=== PATIENT | female | born 1965 | race Caucasian/White ===

== ENCOUNTER 2016-10-18 16:54 | Emergency (ER) | payer OTHER ==
[~2016-10-18] VITALS: Ht 170.2 cm; Wt 104.3 kg
[~2016-10-18 16:54] MED LIST: AUGMENTIN 875875 MG PO; BENTYL 20 MG TA20 M1 PO; CIPRO500 MG PO; CITRATE OF MAG296 ML PO; COLACE100 MG PO; DESYREL150 MG PO; FLEXERIL PO; FLONASE 0.05%50 MCG NASAL; HYDROCODONE-AP1 EAC6 PO; IBUPROFEN 600600 M1 PO; IBUPROFEN 800800 M1 PO; KEFLEX500 M1 PO; KEFLEX500 MG PO; MACROBID 100 M100 M1 PO; MACRODANTIN100 MG PO; MIRALAX17 GM PO; NORCO 5-325 TA1 EACH PO; NYAMYC15 GM TOP; OLEPTRO ER150 MG PO; PHENERGAN 25 MG25 M1 PO; PREDNISONE 20 M20 M1 PO; PROZAC40 MG PO; PYRIDIUM200 MG PO; TRAZODONE 150150 M1 PO; VENLAFAXINE H37.5 M2 PO; XANAX 0.5 MG0.5 MG PO; ZANTAC 150MG T150 MG PO; ZOFRAN ODT4 MG PO; ZPAK PO
[2016-10-18 17:43] LABS: URINE BILIRUBIN NEGATIVE (Negative); URINE BLOOD TRACE (Negative); URINE COLOR YELLOW; URINE GLUCOSE-RANDOM* NEGATIVE (Negative); URINE KETONES NEGATIVE (Negative); URINE NITRITE NEGATIVE (Negative); URINE PROTEIN (DIPSTICK) NEGATIVE (Negative); URINE SPECIFIC GRAVITY 1.025 (1.003-1.035); URINE UROBILINOGEN 0.2 E.U./dl (0.2-1.0)
[2016-10-18 18:40] LABS: SQUAMOUS >10 Many /LPF (0-3); URINE RBC 0-2 Rare /HPF (0-2); URINE WBC 0-5 Rare /HPF (0-5)
[2016-10-18 18:41] LABS: BACTERIA 1-9 Few /HPF (None Seen); CASTS None Seen /LPF (None Seen); CRYSTALS None Seen /LPF (None Seen)
[2016-10-18] MEDS ORDERED: PHENAZOPYRIDIN200 M2 PO (18:51)
[2016-10-18] MEDS ORDERED: CIPRO500 MG PO (18:51)
== END 2016-10-18 19:02 | disposition home or self-care (01) ==
LOC: ER 16:54
PROVIDERS: Nurse Practitioner Family
DX: R30.0 Dysuria (principal); F31.9 Bipolar disorder, unspecified; K58.9 Irritable bowel syndrome, unspecified; E66.9 Obesity, unspecified; Z68.36 Body mass index [BMI] 36.0-36.9, adult; Z86.2 Personal history of diseases of the blood and blood-forming organs and certain disorders involving the immune mechanism; N80.9 Endometriosis, unspecified; Z88.1 Allergy status to other antibiotic agents; Z88.2 Allergy status to sulfonamides; Z88.6 Allergy status to analgesic agent

== ENCOUNTER → 2016-10-20 | Outpatient (CLI) | payer OTHER ==
[~2016-10-20] MED LIST changes: +PHENAZOPYRIDIN200 M2 PO
== END ==
LOC: RAD
DX: Z12.31 Encounter for screening mammogram for malignant neoplasm of breast (principal)

== ENCOUNTER 2016-11-15 20:07 | Emergency (ER) | payer OTHER ==
[~2016-11-15] VITALS: Ht 170.2 cm; Wt 108.9 kg
[2016-11-15] MEDS ORDERED: ATIVAN1 MG PO (21:56)
[2016-11-15] MEDS ORDERED: MOBIC15 MG PO (22:03)
== END 2016-11-15 22:18 | disposition home or self-care (01) ==
LOC: ER 20:07
DX: G56.22 Lesion of ulnar nerve, left upper limb (principal); Z98.890 Other specified postprocedural states; F41.9 Anxiety disorder, unspecified; F31.9 Bipolar disorder, unspecified; Z96.653 Presence of artificial knee joint, bilateral; Z88.1 Allergy status to other antibiotic agents; Z88.2 Allergy status to sulfonamides; Z88.6 Allergy status to analgesic agent

== ENCOUNTER 2017-04-08 01:38 | Emergency (ER) | payer OTHER ==
[~2017-04-08] VITALS: Ht 170.2 cm; Wt 104.3 kg
[~2017-04-08 01:38] MED LIST changes: +ATIVAN1 MG PO; +MOBIC15 MG PO
== END 2017-04-08 05:50 | disposition home or self-care (01) ==
LOC: ER 01:38
DX: S81.811A Laceration without foreign body, right lower leg, initial encounter (principal); F32.9 Major depressive disorder, single episode, unspecified; F41.9 Anxiety disorder, unspecified; N80.9 Endometriosis, unspecified; E66.9 Obesity, unspecified; Z96.653 Presence of artificial knee joint, bilateral; Z86.2 Personal history of diseases of the blood and blood-forming organs and certain disorders involving the immune mechanism; Z88.1 Allergy status to other antibiotic agents; Z88.2 Allergy status to sulfonamides; Z88.6 Allergy status to analgesic agent; Z88.8 Allergy status to other drugs, medicaments and biological substances; Z68.36 Body mass index [BMI] 36.0-36.9, adult; W22.8XXA Striking against or struck by other objects, initial encounter; Y93.89 Activity, other specified; Y92.89 Other specified places as the place of occurrence of the external cause; Y99.8 Other external cause status

== ENCOUNTER 2017-07-16 18:57 | Emergency (ER) | payer OTHER ==
[~2017-07-16] VITALS: Ht 170.2 cm; Wt 104.3 kg
[~2017-07-16 18:57] MED LIST changes: +ABILIFY 5 MG TAB5 MG PO; +BUTALB-APAP-CA1 EACH PO; +CLONAZEPAM 0.50.5 M1 PO; +LEXAPRO20 MG PO; +MUCINEX DM ER1 EACH PO; +TRAZODONE HCL100 MG PO; +VISTARIL 25 MG25 M1 PO; +VOLTAREN 50MG T50 MG PO; +ZANTAC 150MG T150 M1 PO
[2017-07-16 20:17] LABS: URINE BILIRUBIN NEGATIVE (Negative); URINE BLOOD 1+ (Negative); URINE CLARITY CLEAR; URINE COLOR YELLOW; URINE GLUCOSE-RANDOM* NEGATIVE (Negative); URINE KETONES NEGATIVE (Negative); URINE LEUKOCYTES-REFLEX NEGATIVE (Negative); URINE NITRITE-REFLEX NEGATIVE (Negative); URINE PROTEIN (DIPSTICK) NEGATIVE (Negative); URINE SPECIFIC GRAVITY >= 1.030 (1.005-1.035); URINE UROBILINOGEN 0.2 E.U./dl (0.2-1.0)
[2017-07-16 20:34] LABS: CASTS None Seen /LPF (None Seen); MUCUS 4-6 Moderate strn/LPF (None Seen); SQUAMOUS 0-3 Few /LPF (0-3)
[2017-07-16 20:35] LABS: BACTERIA-REFLEX 1-9 Few /HPF (None Seen); CRYSTALS None Seen /LPF (None Seen); URINE RBC 0-2 Rare /HPF (0-2); URINE WBC-REFLEX 0-5 Rare /HPF (0-5)
[2017-07-16] MEDS ORDERED: VALIUM5 MG PO (21:04)
[2017-07-16] MEDS ORDERED: MOBIC15 MG PO (21:04)
[2017-07-16] MEDS ORDERED: NORCO 5-325 TA1 EACH PO (21:04)
[2017-07-16 21:42] VITALS: BP 134/64
== END 2017-07-16 21:42 | disposition home or self-care (01) ==
LOC: ER 18:57
PROVIDERS: Emergency Medicine
DX: M54.5 Low back pain (principal); M54.6 Pain in thoracic spine; F41.9 Anxiety disorder, unspecified; F31.9 Bipolar disorder, unspecified; E66.9 Obesity, unspecified; N80.9 Endometriosis, unspecified; Z96.653 Presence of artificial knee joint, bilateral; Z86.2 Personal history of diseases of the blood and blood-forming organs and certain disorders involving the immune mechanism; Z68.36 Body mass index [BMI] 36.0-36.9, adult; Z88.1 Allergy status to other antibiotic agents; Z88.2 Allergy status to sulfonamides; Z88.6 Allergy status to analgesic agent

== ENCOUNTER 2017-10-13 22:32 | Emergency (ER) | payer OTHER ==
[~2017-10-13] VITALS: Ht 170.2 cm; Wt 108.9 kg
[~2017-10-13 22:32] MED LIST changes: +VALIUM5 MG PO
[2017-10-13] MEDS ORDERED: NORCO 5-325 TA1 EACH PO (23:30)
[2017-10-13] MEDS ORDERED: NAPROSYN500 MG PO (23:30)
[2017-10-13] MEDS ORDERED: NORFLEX100 MG PO (23:30)
== END 2017-10-14 00:08 | disposition home or self-care (01) ==
LOC: ER 22:32
DX: G89.29 Other chronic pain (principal); M54.5 Low back pain; Z96.653 Presence of artificial knee joint, bilateral; Z88.2 Allergy status to sulfonamides; Z88.1 Allergy status to other antibiotic agents

== ENCOUNTER → 2017-12-15 | Outpatient (CLI) | payer OTHER ==
[~2017-12-15] MED LIST changes: +NAPROSYN500 MG PO; +NORFLEX100 MG PO
== END ==
LOC: RAD 11:25
DX: Z12.31 Encounter for screening mammogram for malignant neoplasm of breast (principal)